=== PATIENT | male | born 1990 | race Hispanic/Latino ===

== ENCOUNTER 2021-06-03 12:38 | Emergency (ER) | payer SELFPAY ==
[~2021-06-03] VITALS: Ht 167.6 cm; Wt 57.0 kg
[2021-06-03] VITALS (8 sets, daily range): BP systolic 100–151; BP diastolic 55–96
[2021-06-03] MEDS ORDERED: IBUPROFEN600 MG PO (14:01)
== END 2021-06-03 14:41 | disposition home or self-care (01) | DRG 563 ==
LOC: ED 12:38
DX: S83.92XA Sprain of unspecified site of left knee, initial encounter (principal); X58.XXXA Exposure to other specified factors, initial encounter